=== PATIENT | female | born 1990 | race Caucasian/White ===

== ENCOUNTER 2017-12-30 09:40 | Emergency (ER) | payer MEDICAID, SELFPAY ==
[2017-12-30 09:41] VITALS: BP 125/88; PULSE 90; RESP 16; TEMP 36.4; O2SAT 100; BMI 24.0
[2017-12-30 10:04] LABS: Mucous, Urine 0 SEEN /hpf (<or=2+)
[2017-12-30 10:08] LABS: Color, Urine Yellow (Yellow); Glucose, Dipstick Normal (Normal); Ketone-Dipstick Negative (Negative); Leukocyte Esterase-Dipstick 500 /ul (Negative); Nitrite-Dipstick Positive (Negative); Occult Blood-Urine 250 /ul (Negative); Protein-Dipstick 100 mg/dl (Negative); Urine Bilirubin Dipstick Negative (Negative); Urine Clarity Sl. Cloudy (Clear); Urine Urobilinogen Normal (Normal)
[2017-12-30 10:13] LABS: Internal QC Validated? YES +Cl - CLEAR BKGD; Pregnancy, Urine Negative Negative
[2017-12-30 10:18] LABS: Bacteria 2+ /hpf (None Seen); Red Blood Cells-Urine 50-100 SEEN /hpf (0-5); Squamous Epithelial Cells - UA 0-5 SEEN /hpf (5-10); White Blood Cells >100 SEEN /hpf (0-5)
--- NOTE | 2017-12-30 10:37 | CT_ITS ---
STUDY: CT ABDOMEN AND PELVIS WITHOUT CONTRAST REASON FOR EXAM: Female, 27 years old. Left flank pain. Painful urination. RADIATION DOSAGE (If Supplied By Facility): CTDIvol = ( 6.69 ) mGy, DLP = ( 312.68 ) mGycm TECHNIQUE: Transaxial images were obtained from the dome of the diaphragm to the symphysis pubis without oral contrast, and without intravenous contrast. Sagittal and coronal images were reconstructed. Individualized dose optimization techniques were used for this CT. COMPARISON: None. FINDINGS: The visualized lung bases are unremarkable. The visualized portions of the heart are within normal limits. Normal liver. Normal gallbladder and extrahepatic biliary system. There is a benign calcified granuloma of the spleen. Normal pancreas. Normal bilateral adrenal glands. Normal right kidney. Normal left kidney. Normal visualized stomach. Normal small intestine. Moderate amount of fecal material is seen in the colon. There are surgical clips in the region of the appendix consistent with a prior appendectomy. Normal abdominal aorta. Normal inferior vena cava. Normal retroperitoneum. Normal urinary bladder. There is a small umbilical hernia containing fat. Normal osseous structures. CT/Abdomen/Pelvis without Cont IMPRESSION: Moderate amount of fecal material is seen in the colon. Electronically Signed: Reyes Sandoval MD at 12:14 EDT Tel [phone], Service support ,
--- NOTE | 2017-12-30 12:26 | ED.VISSUMM ---
- ER Visit Summary Date of Service: 12/30/17 Chief Complaint: Dysuria History of Present Illness: The patient is a 27 F who states that on Mother's Day she had some hematuria which resolved. She said 2 days ago she began to have dysuria and some left flank pain. She notes nausea but no fevers. She has had prior appendectomy and 2 C-sections. Physical Examination: Afebrile vital signs stable Gen: Well-nourished well-developed Head: Normocephalic atraumatic Eyes: Perrl EOMI ENT: TMs clear no rhinorrhea moist mucous membranes Neck: Supple no lymphadenopathy no JVD nontender CVS: Regular rate rhythm no murmurs normal S1-S2 Respiratory: No distress clear to auscultation bilaterally chest nontender Abdomen: Soft nontender nondistended normal bowel sounds no masses Back: Left CVA tenderness Extremity: Nontender no edema Skin: Normal color no rash Neuro: alert orientated ?3 CN II-XII intact normal strength sensation reflexes gait cerebellar Psych: Normal affect normal mood Test Results: Urinalysis demonstrated greater than 100 white blood cells 50-100 red blood cells and 2+ bacteria. test was negative. CT the flank did not demonstrate any ureterolithiasis. Emergency Department Course and Treatment: Urged home on Cipro a few [place] and Zofran for nausea. She will return if worsening or concerns. Impression: 1. Pyelonephritis This note was generated with [employer] dictation software. It may contain incorrect words, spelling, and punctuation that were not noted in review of the chart prior to signing ED Disposition - Plan for ED Patient: Disposition: Home or Assisted Living Chief Complaint: Complaint Instructions: ED Kidney Infec Female Prescriptions: Hydrocodone Bitart/Apap 5-325 [[place] 5MG-325MG] 1 tab PO Q6H PRN PRN 3 Days #10 tab PRN Reason: Pain Ondansetron [Zofran Odt] 4 mg PO Q8H PRN PRN #10 tab PRN Reason: Nausea Ciprofloxacin [Cipro] 500 mg PO BID #14 tab Referrals: Claudia Mora DO [STAFF PHYSICIAN] - 3-5 Days if not improving
--- NOTE | 2017-12-30 12:29 | ED.DCSUM_ITS ---
- ER Visit Summary Date of Service: 12/30/17 Chief Complaint: Dysuria History of Present Illness: The patient is a 27 F who states that on Mother's Day she had some hematuria which resolved. She said 2 days ago she began to have dysuria and some left flank pain. She notes nausea but no fevers. She has had prior appendectomy and 2 C-sections. Physical Examination: Afebrile vital signs stable Gen: Well-nourished well-developed Head: Normocephalic atraumatic Eyes: Perrl EOMI ENT: TMs clear no rhinorrhea moist mucous membranes Neck: Supple no lymphadenopathy no JVD nontender CVS: Regular rate rhythm no murmurs normal S1-S2 Respiratory: No distress clear to auscultation bilaterally chest nontender Abdomen: Soft nontender nondistended normal bowel sounds no masses Back: Left CVA tenderness Extremity: Nontender no edema Skin: Normal color no rash Neuro: alert orientated ?3 CN II-XII intact normal strength sensation reflexes gait cerebellar Psych: Normal affect normal mood Test Results: Urinalysis demonstrated greater than 100 white blood cells 50-100 red blood cells and 2+ bacteria. test was negative. CT the flank did not demonstrate any ureterolithiasis. Emergency Department Course and Treatment: Urged home on Cipro a few [place] and Zofran for nausea. She will return if worsening or concerns. Impression: 1. Pyelonephritis This note was generated with [employer] dictation software. It may contain incorrect words, spelling, and punctuation that were not noted in review of the chart prior to signing ED Disposition - Plan for ED Patient: Disposition: Home or Assisted Living Chief Complaint: Complaint Instructions: ED Kidney Infec Female Prescriptions: Hydrocodone Bitart/Apap 5-325 [[place] 5MG-325MG] 1 tab PO Q6H PRN PRN 3 Days #10 tab PRN Reason: Pain Ondansetron [Zofran Odt] 4 mg PO Q8H PRN PRN #10 tab PRN Reason: Nausea Ciprofloxacin [Cipro] 500 mg PO BID #14 tab Referrals: Claudia Mora DO [STAFF PHYSICIAN] - 3-5 Days if not improving
[2017-12-30 12:38] VITALS: BP 125/92; PULSE 85; RESP 16; O2SAT 100
== END 2017-12-30 12:39 | disposition home or self-care (01) ==
PROVIDERS: Emergency Provider Emergency Medicine
DX: N12 Tubulo-interstitial nephritis, not specified as acute or chronic (principal); Z90.89 Acquired absence of other organs
CPT/HCPCS: 74176; 81001; 81025; 87077; 87086; 87088; 87186; 99282

== ENCOUNTER 2020-06-27 00:17 | Emergency (ER) | payer OTHER, MEDICAID, SELFPAY ==
[2020-06-27 00:17] VITALS: BP 120/89; PULSE 90; RESP 16; TEMP 36.8; O2SAT 100; BMI 27.6
--- NOTE | 2020-06-27 00:30 | ED.DCSUM_ITS ---
History of Present Illness Chief Complaint: Ear Problem Narrative: This patient is a 30-year-old female who presents with left ear pain. This has been going on for about 1 week. She complains of pain that radiates down to her teeth but does not actually have dental pain for example with tooth brushing. She also states her right ear feels clogged. No fevers congestion rhinorrhea. Past Medical History - Allergies and Home Meds Allergies/Adverse Reactions: Allergies No Known Allergies Allergy (Verified 12/30/17 09:41) Primary Care Physician: Brennon Physician,Anika Primary [Primary Care Provider] - Past Medical History: None Smoking Status: Former smoker Review of Systems All systems negative except as indicated General: Denies: Fever ENT: Reports: Right ear pain Cardiovascular: Denies: Chest pain Respiratory: Denies: Dyspnea Skin: Denies: Rash Neurological: Denies: Headache Physical Exam Vital Signs/Narrative: Vital Signs Temp Pulse Resp BP Pulse Ox 06/27/20 00:17 98.2 F 90 16 120/89 H 100 Inital Vital Signs reviewed: Yes General: Well nourished Head: Normocephalic Eyes: EOMI ENT: TM's clear, - - Normal bilateral ears, TMs and external auditory canals Cardiovascular: Regular rate Respiratory: No distress Skin: Normal color Neurological: Alert Psychological: Normal affect Diagnostic/Tx/Re-eval - Medical Decision Making Bilateral ear examination is unremarkable. Patient was referred to ENT should h er symptoms continue. She was advised to use Tylenol for pain. Patient was discharged. ED Disposition - Plan for ED Patient: Disposition: Home or Assisted Living Diagnosis: Otalgia of left ear Referrals: Care Physician,No Primary [Primary Care Provider] - Jose Godinez MD [STAFF PHYSICIAN] -
== END 2020-06-27 01:11 | disposition home or self-care (01) ==
LOC: ED 01:09
PROVIDERS: Emergency Provider Emergency Medicine
DX: H92.02 Otalgia, left ear (principal); Z87.891 Personal history of nicotine dependence
CPT/HCPCS: 99282

== ENCOUNTER → 2020-06-28 08:48 | Outpatient (CLI) | payer OTHER, MEDICAID, SELFPAY ==
[2020-06-27 00:17] VITALS: BMI 27.6
--- NOTE | 2020-06-28 08:53 | US_ITS ---
STUDY: FIRST TRIMESTER OBSTETRICAL ULTRASOUND REASON FOR EXAM: Female, 30 years old DATING -- HX OF BICORNUATE [place] LMP: 04/12/2020. TECHNIQUE: Transvaginal TECHNICAL QUALITY: Adequate. PRIOR ULTRASOUND: None. FINDINGS: There is visualization of a single gestational sac in a normal intrauterine position. The mean sac diameter (MSD) measures 4.84 cm, indicating an estimated gestational age (EGA) of 10 weeks, 3 days. The gestational sac shape is within normal limits. There is a visualized yolk sac. The yolk sac measures 5.4 mm. There is visualization of the placenta. The placenta is posterior. There is visualization of a live embryo. The crown-rump length (CRL) measures 3.48 cm, indicating an estimated gestational age (EGA) of 10 weeks, 0 days. There is demonstrated cardiac activity with a heart rate of 164 bpm. The estimated gestation age (EGA) by LMP is 11 weeks, 0 days. The estimated date of delivery (DEVORA) by LMP is 01/17/2021. The estimated gestation age (EGA) by US is 10 weeks, 1 days. The estimated date of delivery (DEVORA) by US is 01/23/2021. The uterus measures 13.8 cm x 7.7 cm x 7.1 cm. There is a 1.3 cm x 2.2 cm small subchorionic hematoma. There is no demonstrated uterine fibroid. The cervix is closed. The right ovary measures 3.4 cm x 3.2 cm x 1.9 cm. There is no right ovarian cyst. There is no visualized right adnexal mass or complex lesion. The left ovary measures 3.4 cm x 3.6 cm x 2.2 cm. Within it, there is a 1.8 cm x 1.7 cm x 1.4 cm corpus luteum cyst. There is no visualized left adnexal mass or complex lesion. There is no fluid in the cul de sac. US/Init OB < 14Wks US IMPRESSION: Single live uterine gestation with a mean gestational age of 10 weeks and 1 day. Small subchorionic hematoma. 1.8 cm x 1.7 cm x 1.4 cm corpus luteum cyst in the left ovary. Electronically Signed: Reyes Sandoval, at 12:29 EST , Service support ,
== END ==
DX: Z36.87 Encounter for antenatal screening for uncertain dates (principal)
CPT/HCPCS: 76801

== ENCOUNTER 2020-07-01 10:31 | Emergency (ER) | payer OTHER, MEDICAID, SELFPAY ==
[2020-07-01 10:33] VITALS: BP 140/82; PULSE 75; RESP 16; TEMP 36.3; O2SAT 100; BMI 27.6
--- NOTE | 2020-07-01 10:48 | ED.VISSUMM ---
- ER Visit Summary Date of Service: 07/01/20 Chief Complaint: Dental pain History of Present Illness: The patient is a 30 F who presents with left-sided dental pain that has been getting worse over the past week. Patient was seen here 4 days ago for ear pain but denied any dental pain at that time. Patient states she applied temporary cavity filling to the left lower molars which has not helped. Patient describes her pain as aching and burning. Patient states the pain is over the left upper and lower molars. Patient states the pain is worse with eating. Patient states nothing has been helping. Patient denies any fevers or chills. Patient denies any facial or jaw swelling. Patient admits to some cold sensitivity. Physical Examination: Vital signs are stable. Patient is afebrile. Patient is in no acute distress. Oral mucosa is pink and moist. Oropharynx is clear. Airway is patent. There are multiple dental caries noted over the left upper and lower molars. There is some mild gingival edema of the left lower molars. There is no sublingual edema or erythema. There is no evidence of any Ashvin's angina. Neck is supple. Trachea is midline. There is no JVD or lymphadenopathy. Cranial nerves II through XII are intact. There are no focal motor or sensory deficits. Emergency Department Course and Treatment: Patient was given a prescription for Pen-Vee K. Patient was given her first dose here. Patient was instructed to follow-up with her dentist in 5 to 7 days. Patient was instructed to take Tylenol as needed for pain. Patient was advised that this is the safest analgesic in . Patient understands and is agreeable with the plan. All questions were answered. Disposition: Discharge home Impression: Infected dental caries This note was generated with [employer] dictation software. It may contain incorrect words, spelling, and punctuation that were not noted in review of the chart prior to signing ED Disposition - Plan for ED Patient: Disposition: Home or Assisted Living Diagnosis: Infected dental caries Instructions: ED [facility] Dental Prescriptions: Penicillin V Potassium 500 mg PO 4X/DAY #40 tab Prescription Printed Referrals: Dentist,Your [STAFF PHYSICIAN] - 5-7 Days
[2020-07-01] MEDS: Penicillin Vk 250 MG Tablet 500 MG PO (11:15)
== END 2020-07-01 11:16 | disposition home or self-care (01) ==
LOC: ED 11:16
PROVIDERS: Emergency Provider Emergency Medicine; PCP Nurse Practitioner Primary Care
DX: K04.7 Periapical abscess without sinus (principal); K02.9 Dental caries, unspecified
CPT/HCPCS: 99282